=== PATIENT | female | born 1975 | race African-American/Black ===

== ENCOUNTER 2017-03-03 21:25 | Emergency (ER) | payer MEDICAID ==
[~2017-03-03] VITALS: Ht 170.2 cm; Wt 47.0 kg
[2017-03-04 01:07] LABS: BASOPHILS % 1.2 % (0.0-2.0); EOSINOPHILS % 0.7 % (0.0-5.0); HEMATOCRIT. 31.5 % (36.0-48.0); HEMOGLOBIN. 10.8 g/dL (12.0-16.0); LYMPHOCYTES % 26.2 % (20.0-50.0); MEAN CORPUSCULAR HEMOGLOBIN 31.4 pg (28.0-32.0); MEAN CORPUSCULAR VOLUME 92.1 fL (81.0-99.0); MEAN PLATELET VOLUME 6.7 fl (7.4-10.4); MONOCYTES % 7.1 % (2.0-8.0); NEUTROPHILS % 64.8 % (40.0-76.0); PLATELET 327 x1000/uL (130-400); RED BLOOD CELL COUNT 3.42 mill/uL (4.2-5.4); RED CELL DISTRIBUTION WIDTH 15.2 % (11.6-14.6)
[2017-03-04 01:08] LABS: CHLORIDE 107 mEq/L (98-107)
[2017-03-04 01:15] LABS: CARBON DIOXIDE 27 mEq/L (21-32)
[2017-03-04 03:25] VITALS: BP 130/75
== END 2017-03-04 05:30 | disposition left against medical advice (07) ==
LOC: ER 21:56 → CANBEDREQ 03-04 08:54
DX: R20.0 Anesthesia of skin (principal); J45.909 Unspecified asthma, uncomplicated; R42 Dizziness and giddiness; Z98.890 Other specified postprocedural states
CPT/HCPCS: 36415; 70450; 71010; 80048; 81025; 83735; 85025; 93005; 99291

== ENCOUNTER 2017-03-04 18:47 | Emergency (ER) | payer MEDICAID ==
[~2017-03-04] VITALS: Ht 170.2 cm; Wt 48.0 kg
[2017-03-04 21:20] LABS: EOSINOPHILS % 1.5 % (0.0-5.0); HEMATOCRIT. 31.9 % (36.0-48.0); HEMOGLOBIN. 10.8 g/dL (12.0-16.0); LYMPHOCYTES % 37.9 % (20.0-50.0); MEAN CORPUSCULAR HEMOGLOBIN 31.2 pg (28.0-32.0); MEAN CORPUSCULAR VOLUME 92.5 fL (81.0-99.0); MEAN PLATELET VOLUME 6.6 fl (7.4-10.4); MONOCYTES % 8.5 % (2.0-8.0); NEUTROPHILS % 51.1 % (40.0-76.0); PLATELET 319 x1000/uL (130-400); RED BLOOD CELL COUNT 3.45 mill/uL (4.2-5.4); RED CELL DISTRIBUTION WIDTH 15.2 % (11.6-14.6)
[2017-03-04 21:27] LABS: PROTHROMBIN TIME 10.4 sec
[2017-03-04 21:30] LABS: CARBON DIOXIDE 28 mEq/L (21-32); CHLORIDE 106 mEq/L (98-107)
[2017-03-04 23:07] VITALS: BP 108/78
== END 2017-03-04 23:14 | disposition home or self-care (01) ==
LOC: ER 21:45
DX: R42 Dizziness and giddiness (principal); R20.0 Anesthesia of skin; J45.909 Unspecified asthma, uncomplicated; Z98.890 Other specified postprocedural states
CPT/HCPCS: 36415; 70450; 80053; 85025; 85610; 93005; 99285; Z7610

== ENCOUNTER 2018-01-08 19:30 | Emergency (ER) | payer MEDICAID ==
[~2018-01-08] VITALS: Ht 172.7 cm; Wt 48.0 kg
[2018-01-09] MEDS ORDERED: IBUPROFEN 600MG TABLET PO ONE (00:30)
[2018-01-09 01:23] VITALS: BP 118/68
[2018-01-09] MEDS ORDERED: PENICILLIN V POTASSIUM 250MG TABLET PO SCH (02:30)
== END 2018-01-09 03:33 | disposition home or self-care (01) ==
LOC: ER 23:19
DX: J02.9 Acute pharyngitis, unspecified (principal); J45.909 Unspecified asthma, uncomplicated
CPT/HCPCS: 87070; 87430; 99284